=== PATIENT | male | born 1935 | race Caucasian/White ===

== ENCOUNTER 2016-12-24 07:36 | Outpatient (CLI) | payer MEDICARE, OTHER ==
--- NOTE | 2016-12-24 16:43 | MRI Report ---
EXAM: MRI LUMBAR SPINE WITHOUT CONTRAST EXAM DATE: 12/24/2016 08:26 a.m. CLINICAL HISTORY: Chronic low back pain with radiculopathy. COMPARISON: None. TECHNIQUE: Multiplanar, multisequence T1-weighted and fluid-sensitive sequences of the lumbar spine f rom T12 to S1 without contrast. Other: None. FINDINGS: Spinal Cord: The conus terminates at L1. No signal abnormality in the visualized spinal cord. Alignment: Normal. No scoliosis or spondylolisthesis. Bone Marrow: Five [id number] lumbar vertebral bodies are assumed. No fracture identified. Some d iskogenic endplate edema and possible Schmorl's node at the lower L4 level. There is some intermediat e T1, low T2 signal and high STIR signal at the L3 superior endplate. Possibly an irregular area of d eveloping Schmorl's node formation as the signal characteristics are similar to those seen at the low er L4 endplate. No additional bone lesions are identified. Disk Levels/Facets: T12-L1: Unremarkable. L1-L2: Unremarkable. L2-L3: Slight annular disk bulge. Mild degenerative facet arthropathy. Broad-based right, greater ben n left, foraminal protrusions. Mild narrowing of the foramina inferiorly. L3-L4: Disk height loss and dehydration. Annular disk bulge and mild degenerative facet arthropathy w ith ligamentum flavum buckling. Mild central canal stenosis. Mild left, greater than right, foraminal stenosis. L4-L5: Mild disk height loss. Annular disk bulging and moderate degenerative facet arthropathy with l igamentum flavum buckling. Mild central canal stenosis. Minimal bilateral foraminal stenosis. L5-S1: Disk height loss and dehydration. Annular disk bulge with broad-based central protrusion. Mode rate degenerative facet arthropathy. Mild bilateral foraminal stenosis. Musculature: Normal. No edema or fatty atrophy. Other: Unremarkable. IMPRESSION: 1. Mild multilevel lumbar degenerative disk and facet arthropathy. 2. Mild central canal stenosis and mild foraminal stenosis outlined by individual level above. Comment: The following findings are so common in adults without low back pain that while we report th eir presence, they must be interpreted with caution and in the context of the clinical situation. (Re alli Pulido et al, Spine 2001) Prevalence of findings in patients without low back pain: Disk degeneration (any evidence): 92% Disk desiccation/T2 signal loss: 83% Disk height loss: 56% Disk bulge: 64% Disk protrusion: 32% Annular tear/high intensity zone: 38% [facility] Referring Provider Line: [phone] SITE ID: [id number]
== END 2016-12-24 07:37 | disposition home or self-care (01) ==
LOC: DI 07:36
PROVIDERS: ATTEND Family Medicine
DX: M54.42 Lumbago with sciatica, left side (principal); M51.36 Other intervertebral disc degeneration, lumbar region; M48.06 Spinal stenosis, lumbar region
CPT/HCPCS: 72148

== ENCOUNTER 2020-11-10 07:43 | Outpatient (CLI) | payer MEDICARE, OTHER | END 2020-11-10 07:44 | disposition home or self-care (01) | LOC: DI 07:43 | PROVIDERS: ATTEND Internal Medicine | DX: R00.1 Bradycardia, unspecified (principal); I51.7 Cardiomegaly | CPT/HCPCS: 93306 ==